=== PATIENT | male | born 1990 | race Caucasian/White ===

== ENCOUNTER 2020-01-26 16:54 | Emergency (ER) | payer OTHER ==
[~2020-01-26] VITALS: Ht 165.1 cm; Wt 65.8 kg
[2020-01-26] MEDS ORDERED: CYCLOBENZAPRINE10 MG PO (17:33)
== END 2020-01-26 17:46 | disposition home or self-care (01) ==
LOC: ED 16:54
DX: S29.012A Strain of muscle and tendon of back wall of thorax, initial encounter (principal); X50.9XXA Other and unspecified overexertion or strenuous movements or postures, initial encounter; F17.200 Nicotine dependence, unspecified, uncomplicated
CPT/HCPCS: 99283; A9270